=== PATIENT | male | born 2000 | race Caucasian/White ===

== ENCOUNTER 2022-02-20 04:30 | Inpatient (IN) | payer OTHER ==
[~2022-02-20] VITALS: Ht 177.8 cm; Wt 95.5 kg
[2022-02-20 05:32] LABS: BASOPHILS % (AUTO) 0.4 % (0.0-2.0); EOSINOPHILS % (AUTO) 3.5 % (1.0-6.0); HEMATOCRIT 43.9 % (41-53); HEMOGLOBIN 15.1 g/dL (13.5-17.5); LYMPHOCYTES # (AUTO) 1.6 K/uL (1.0-4.8); LYMPHOCYTES % (AUTO) 11.7 % (22.0-44.0); MEAN CORPUSCULAR HEMOGLOBIN 29.1 pg (26.0-34.0); MEAN CORPUSCULAR HGB CONC 34.5 G/dL (31.0-37.0); MEAN CORPUSCULAR VOLUME 84 fL (80-100); MONOCYTES # (AUTO) 1.1 K/uL (0.1-1.0); MONOCYTES % (AUTO) 8.1 % (2.0-9.0); NEUTROPHILS # (AUTO) 10.6 K/uL (1.8-7.7); NEUTROPHILS % (AUTO) 76.3 % (40.0-70.0); PLATELET COUNT (AUTO) 345 K/uL (150-450); RED BLOOD CELL COUNT(AUTO) 5.21 MIL/uL (4.50-5.90); RED CELL DISTRIBUTION WIDTH 13.2 % (11.5-14.5)
[2022-02-20 05:41] LABS: ANION GAP 10 mmol/L (8-16); CALCIUM, TOTAL 9.2 mg/dL (8.8-10.5); CARBON DIOXIDE 26 mmol/L (22-29); CHLORIDE 102 mmol/L (98-107); CREATININE 1.01 mg/dL (0.60-1.30); GLOMERULAR FILTR. RATE CALC > 60 mL/min (>60); GLUCOSE,RANDOM 101 mg/dL (70-110); POTASSIUM 4.2 mmol/L (3.5-5.1); SODIUM SERUM 138 mmol/L (136-145); UREA NITROGEN, BLOOD 13 mg/dL (7-18)
[2022-02-20 05:45] LABS: APPEARANCE,URINE CLEAR (CLEAR); BILIRUBIN,URINE NEGATIVE (NEGATIVE); GLUCOSE, URINE (UA) NEGATIVE (NEGATIVE); KETONES,URINE NEGATIVE (NEGATIVE); LEUKOCYTE ESTERASE ,URINE NEGATIVE (NEGATIVE); NITRATE,URINE NEGATIVE (NEGATIVE); OCCULT BLOOD,URINE NEGATIVE (NEGATIVE); PROTEIN,URINE TRACE mg/dL (NEGATIVE); UROBILINOGEN,URINE <=1.0 mg/dL (<=1.0)
[2022-02-20] MEDS ORDERED: SODIUM CHLORIDE 0.9% 1,000 ML IV ONE (05:45)
[2022-02-20] MEDS ORDERED: ONDANSETRON HCL 4 MG/2 ML VIAL IVP ONE (05:45)
[2022-02-20] MEDS ORDERED: MORPHINE SULFATE 4 MG/ML SYRINGE IVP ONE (05:45)
[2022-02-20 05:46] LABS: ALANINE AMINOTRANSFERASE 35 U/L (12-78); ALBUMIN 4.1 g/dL (3.4-5.0); ALKALINE PHOSPHATASE 65 U/L (46-116); ASPARTATE AMINOTRANSFERASE 19 U/L (15-37); BILIRUBIN,TOTAL 0.8 mg/dL (0.1-1.0); LIPASE 56 U/L (73-393)
[2022-02-20] MEDS ORDERED: SODIUM CHLORIDE 0.9% 100 ML ONE (05:47)
[2022-02-20] MEDS ORDERED: IOHEXOL 350 MG/ML 150 ML VIAL ONE (05:47)
[2022-02-20] MEDS ORDERED: PIPERACILLIN/TAZO 3.375 GM/D5W 50 ML IV ONE ×2 (09:00→15:00)
[2022-02-20] MEDS ORDERED: CefTRIAXone 1 GM/DEXTROSE 50 ML IV ONE (09:15)
[2022-02-20] MEDS ORDERED: MetroNIDAZOLE 500 MG/NACL 100 ML IV ONE (09:15)
[2022-02-20 09:43] LABS: INR 1.1 (0.9-1.1); PROTHROMBIN TIME 11.6 SEC (9.4-11.6)
[2022-02-20] MEDS ORDERED: ONDANSETRON HCL 4 MG/2 ML VIAL IVP PRN ×2 (09:45→13:15)
[2022-02-20] MEDS ORDERED: 0.9% SODIUM CHLORIDE 10 ML SYRINGE IVP PRN (09:45)
[2022-02-20] MEDS ORDERED: ACETAMINOPHEN 325 MG TABLET PO PRN ×2 (09:45→13:15)
[2022-02-20] MEDS ORDERED: RINGERS SOLUTION,LACTATED 1,000 ML IV ONE (12:19)
[2022-02-20 12:43] LABS: COVID AG,FIA SOURCE NASAL SWAB
[2022-02-20] MEDS ORDERED: BISACODYL 10 MG RECTAL RECTAL SUPPOSITORY PR PRN (13:15)
[2022-02-20] MEDS ORDERED: MAGNESIUM HYDROXIDE SUSPENSION 30 ML UDCUP PO PRN (13:15)
[2022-02-20] MEDS ORDERED: ZOLPIDEM TARTRATE 5 MG TABLET PO PRN (13:15)
[2022-02-20] MEDS ORDERED: HYDROCODONE/ACETAMINOPHEN 5-325 MG TABLET PO PRN (13:15)
[2022-02-20] MEDS ORDERED: MORPHINE SULFATE 2 MG/ML SYRINGE IVP PRN (13:15)
[2022-02-20] MEDS ORDERED: ACETAMINOPHEN 1000 MG/ISO-OSM 100 ML IV ONE (14:30)
[2022-02-20] MEDS: HEPARIN SODIUM,PORCINE 5,000 UNITS/ML VIAL SQ SCH ×2 (16:00→23:28)
[2022-02-20] MEDS ORDERED: BUPIVACAINE HCL 0.25% 50 ML VIAL ONE ×3 (16:05→16:09)
[2022-02-20] MEDS ORDERED: BUPIVACAINE HCL/PF 0.25% 30 ML VIAL ONE (16:06)
[2022-02-20] MEDS ORDERED: SODIUM CHLORIDE 0.9% 0 ML ONE (16:07)
[2022-02-20] MEDS ORDERED: BUPIVACAINE 0.25%/EPI 1:200,000/PF 10 ML VIAL ONE (16:10)
[2022-02-20] MEDS ORDERED: MEPERIDINE-PF 25 MG/ML VIAL IVP PRN (17:00)
[2022-02-20] MEDS ORDERED: FentaNYL CITRATE PF 100 MCG/2 ML VIAL IVP PRN (17:00)
[2022-02-20] MEDS ORDERED: HYDROmorphone 2 MG/ML VIAL IVP PRN (17:00)
[2022-02-20] MEDS ORDERED: OxyCODONE HCL 5 MG IR TABLET PO PRN (17:15)
[2022-02-20 18:29] VITALS: BP 131/85
[2022-02-20] MEDS: OXYGEN THERAPY IH SCH (20:00)
[2022-02-20 20:24] VITALS: BP 121/65
[2022-02-20] MEDS: DOCUSATE SODIUM 100 MG CAPSULE PO SCH (20:24)
[2022-02-20] MEDS: PIPERACILLIN/TAZO 3.375 GM/D5W 50 ML IV SCH (20:25)
[2022-02-20] MEDS: ACETAMINOPHEN 500 MG TABLET PO SCH (20:27)
[2022-02-20] MEDS ORDERED: SODIUM CHLORIDE 0.9% 250 ML IV ONE (20:31)
[2022-02-20] MEDS: IBUPROFEN 600 MG TABLET PO SCH (23:28)
[2022-02-21] MEDS: PIPERACILLIN/TAZO 3.375 GM/D5W 50 ML IV SCH ×2 (03:07→08:12)
[2022-02-21 04:00] VITALS: BP 123/57
[2022-02-21] MEDS: IBUPROFEN 600 MG TABLET PO SCH ×2 (05:31→12:43)
[2022-02-21] MEDS ORDERED: PROPOFOL 1% 20 ML VIAL IVP ONE (05:42)
[2022-02-21] MEDS ORDERED: MIDAZOLAM HCL 2 MG/2 ML VIAL IVP ONE (05:42)
[2022-02-21] MEDS ORDERED: DEXAMETHASONE SOD PHOS 4 MG/ML VIAL IVP ONE (05:42)
[2022-02-21] MEDS ORDERED: KETOROLAC TROMETHAMINE 60 MG/2 ML VIAL IM ONE (05:42)
[2022-02-21] MEDS ORDERED: ONDANSETRON HCL 4 MG/2 ML VIAL IVP ONE (05:42)
[2022-02-21] MEDS ORDERED: MORPHINE SULFATE/PF 0.5 MG/ML 10 ML AMP IVP ONE (05:42)
[2022-02-21] MEDS ORDERED: ROCURONIUM BROMIDE 10 MG/ML 5 ML VIAL IVP ONE (05:42)
[2022-02-21] MEDS ORDERED: LIDOCAINE/PF 2% 5 ML VIAL IM ONE (05:42)
[2022-02-21] MEDS ORDERED: 0.9% SODIUM CHLORIDE 10 ML VIAL IVP ONE (05:42)
[2022-02-21] MEDS ORDERED: MORPHINE SULFATE 4 MG/ML SYRINGE IVP ONE (05:42)
[2022-02-21] MEDS ORDERED: FentaNYL CITRATE PF 100 MCG/2 ML VIAL IVP ONE (05:42)
[2022-02-21 07:11] LABS: BASOPHILS % (AUTO) 0.1 % (0.0-2.0); EOSINOPHILS % (AUTO) 0 % (1.0-6.0); HEMATOCRIT 41.9 % (41-53); HEMOGLOBIN 14.2 g/dL (13.5-17.5); LYMPHOCYTES # (AUTO) 1.3 K/uL (1.0-4.8); LYMPHOCYTES % (AUTO) 9.7 % (22.0-44.0); MEAN CORPUSCULAR HEMOGLOBIN 28.9 pg (26.0-34.0); MEAN CORPUSCULAR VOLUME 85 fL (80-100); MONOCYTES # (AUTO) 0.8 K/uL (0.1-1.0); NEUTROPHILS % (AUTO) 84.2 % (40.0-70.0); PLATELET COUNT (AUTO) 340 K/uL (150-450); RED BLOOD CELL COUNT(AUTO) 4.93 MIL/uL (4.50-5.90); RED CELL DISTRIBUTION WIDTH 13.1 % (11.5-14.5)
[2022-02-21 07:32] LABS: ALANINE AMINOTRANSFERASE 39 U/L (12-78); ALBUMIN 3.6 g/dL (3.4-5.0); ALKALINE PHOSPHATASE 57 U/L (46-116); ANION GAP 6 mmol/L (8-16); ASPARTATE AMINOTRANSFERASE 20 U/L (15-37); BILIRUBIN,TOTAL 0.9 mg/dL (0.1-1.0); CARBON DIOXIDE 28 mmol/L (22-29); CHLORIDE 103 mmol/L (98-107); CREATININE 0.95 mg/dL (0.60-1.30); GLOMERULAR FILTR. RATE CALC > 60 mL/min (>60); GLUCOSE,RANDOM 120 mg/dL (70-110); POTASSIUM 4.4 mmol/L (3.5-5.1); SODIUM SERUM 137 mmol/L (136-145); TOTAL PROTEIN, SERUM 7.6 g/dL (6.4-8.2); UREA NITROGEN, BLOOD 13 mg/dL (7-18)
[2022-02-21 07:41] VITALS: BP 106/57
[2022-02-21] MEDS: OXYGEN THERAPY IH SCH (08:00)
[2022-02-21] MEDS: DOCUSATE SODIUM 100 MG CAPSULE PO SCH (08:02)
[2022-02-21] MEDS: HEPARIN SODIUM,PORCINE 5,000 UNITS/ML VIAL SQ SCH (08:03)
[2022-02-21] MEDS: ACETAMINOPHEN 500 MG TABLET PO SCH (08:14)
[2022-02-21] MEDS ORDERED: PANTOPRAZOLE SODIUM 40 MG DR TABLET PO SCH (09:00)
[2022-02-21] MEDS ORDERED: AMOX1TAB16 PO (12:37)
== END 2022-02-21 14:06 | disposition home or self-care (01) | DRG 342 ==
LOC: EMS 04:33 → 6N 14:23
PROVIDERS: ADMIT Internal Medicine; ATTEND Internal Medicine
PROC: 0DTJ4ZZ Resection of Appendix, Percutaneous Endoscopic Approach (ICD-10-PCS; principal; 2022-02-20 16:20)
DX: K35.30 Acute appendicitis with localized peritonitis, without perforation or gangrene (principal); R65.10 Systemic inflammatory response syndrome (SIRS) of non-infectious origin without acute organ dysfunction; Z20.822 Contact with and (suspected) exposure to COVID-19
CPT/HCPCS: 74177; 80053; 81003; 83690; 85025; 85610; 85730; 86850; 86900; 86901; 87081; 88304; 99285; J0696; J1100; J1644; J1885; J2250; J2270; J2274; J2405; J2543; J2704; J3010; J3490; J7030; J7050; J7120; Q9967